=== PATIENT | male | born 2000 | race Caucasian/White ===

== ENCOUNTER 2022-04-28 00:49 | Emergency (ER) | payer SELFPAY ==
[2022-04-28 02:06] LABS: BASOPHIL 0.6 % (0-2); EOSINOPHIL 1.7 % (0-5); HCT 42.5 % (42.0-52.0); HGB 14.4 g/dl (13.2-18.0); LYMPHOCYTE 37.7 % (15-48); MCH 30.1 pg (25.0-31.0); MCHC 33.9 g/dL (32.0-36.0); MCV 88.9 fL (78.0-100.0); MONOCYTE 9.9 % (0-12); MPV 11.7 fL (6.0-9.5); NEUTROPHIL 49.5 % (41-80); NRBC 0; PLT 250 K/uL (150-400); RBC 4.78 M/uL (4.70-6.00); WBC 8.5 K/uL (4.0-10.5)
[2022-04-28 02:36] LABS: ALBUMIN 4.1 g/dL (3.4-5.0); BILIRUBIN - TOTAL 0.4 mg/dL (0.2-1.0); BUN/CREAT RATIO (CALC) 11.8 RATIO; CREATININE 0.93 mg/dL (0.67-1.17); GLOBULIN (CALCULATION) 3.3 g/dL; POTASSIUM 3.5 mmol/L (3.5-5.1); TOTAL PROTEIN 7.4 g/dL (6.4-8.2)
[2022-04-28 03:05] LABS: BILIRUBIN NEGATIVE (NEGATIVE); BLOOD NEGATIVE Ery/uL (NEGATIVE); CLARITY CLEAR (CLEAR); COLOR YELLOW (YELLOW); GLUCOSE (U) NORMAL (NORMAL); LEUKOCYTES NEGATIVE Leu/uL (NEGATIVE); NITRITE NEGATIVE (NEGATIVE); PROTEIN NEGATIVE (NEGATIVE); SPECIFIC GRAVITY >=1.030 (1.001-1.030)
[2022-04-28] MEDS ORDERED: COLACE100 MG PO (08:29)
[2022-04-28] MEDS ORDERED: ANUSOL-HC25 MG PR (08:29)
== END 2022-04-28 08:41 | disposition home or self-care (01) ==
LOC: FER 00:49
PROVIDERS: Internal Medicine
DX: K92.1 Melena (principal); K64.4 Residual hemorrhoidal skin tags; R10.32 Left lower quadrant pain
CPT/HCPCS: 36415; 80053; 81003; 85025